=== PATIENT | female | born 1950 | race Asian ===

== ENCOUNTER 2023-08-20 09:43 | Emergency (ER) | payer OTHER ==
[~2023-08-20] VITALS: Ht 154.9 cm; Wt 52.2 kg
[2023-08-20 09:47] VITALS: BP_SYST 185; PULSE 60; RESP 16; TEMP 98.2; O2SAT 98
[2023-08-20] MEDS ORDERED: ZAN4 PO (11:04)
[2023-08-20 11:14] VITALS: BP_SYST 180; PULSE 60; RESP 16; TEMP 98.2; O2SAT 98
== END 2023-08-20 11:15 | disposition home or self-care (01) ==
LOC: SED 09:43
DX: S16.1XXA Strain of muscle, fascia and tendon at neck level, initial encounter (principal); R07.9 Chest pain, unspecified; Z79.899 Other long term (current) drug therapy; X58.XXXA Exposure to other specified factors, initial encounter; Y93.89 Activity, other specified; Y92.89 Other specified places as the place of occurrence of the external cause; Y99.8 Other external cause status
CPT/HCPCS: 72040; 99283